=== PATIENT | male | born 1985 | race Hispanic/Latino ===

== ENCOUNTER 2025-01-19 19:15 | Emergency (ER) | payer OTHER ==
[~2025-01-19] VITALS: Ht 172.7 cm; Wt 99.3 kg
[2025-01-19 19:18] VITALS: PULSE 70; RESP 18; TEMP 98.3
[2025-01-19] MEDS ORDERED: DICYCLOMINE HCL20 MG PO (19:44)
[2025-01-19 19:46] VITALS: BP 130/83; PULSE 70; RESP 18; TEMP 98.3; O2SAT 98
== END 2025-01-19 19:48 | disposition home or self-care (01) ==
LOC: FSED 19:23
DX: R10.12 Left upper quadrant pain (principal)
CPT/HCPCS: 81003; 99283